=== PATIENT | male | born 1985 | race Caucasian/White ===

== ENCOUNTER → 2024-01-16 | Outpatient (CLI) | payer OTHER | LOC: MHCPAIN 08:12 | DX: M54.12 Radiculopathy, cervical region (principal) ==

== ENCOUNTER → 2024-01-22 | Outpatient (CLI) | payer OTHER | LOC: MHCPAIN 08:41 | DX: M54.16 Radiculopathy, lumbar region (principal); M47.816 Spondylosis without myelopathy or radiculopathy, lumbar region; M48.061 Spinal stenosis, lumbar region without neurogenic claudication; M54.2 Cervicalgia | CPT/HCPCS: G0463 ==

== ENCOUNTER → 2024-03-10 | Outpatient (CLI) | payer OTHER | LOC: MHCPAIN 09:51 | DX: M47.816 Spondylosis without myelopathy or radiculopathy, lumbar region (principal); M48.061 Spinal stenosis, lumbar region without neurogenic claudication; M54.50 Low back pain, unspecified; M54.2 Cervicalgia; I10 Essential (primary) hypertension | CPT/HCPCS: G0463 ==

== ENCOUNTER → 2024-04-24 | Outpatient (CLI) | payer OTHER | LOC: MHCPAIN 08:56 | DX: M25.78 Osteophyte, vertebrae (principal); M47.812 Spondylosis without myelopathy or radiculopathy, cervical region; M48.02 Spinal stenosis, cervical region | CPT/HCPCS: G0463 ==

== ENCOUNTER → 2024-05-07 | Outpatient (CLI) | payer OTHER | LOC: MHCPAIN 09:08 | DX: M47.817 Spondylosis without myelopathy or radiculopathy, lumbosacral region (principal); M54.50 Low back pain, unspecified | CPT/HCPCS: J0665 ==

== ENCOUNTER → 2024-05-12 | Outpatient (CLI) | payer OTHER | LOC: MHCPAIN 08:44 | DX: M47.812 Spondylosis without myelopathy or radiculopathy, cervical region (principal); M50.221 Other cervical disc displacement at C4-C5 level; M48.02 Spinal stenosis, cervical region; I10 Essential (primary) hypertension; M54.50 Low back pain, unspecified | CPT/HCPCS: G0463 ==